=== PATIENT | male | born 1950 | race Caucasian/White ===

== ENCOUNTER 2019-06-03 11:07 | Inpatient (IN) | payer MEDICARE ==
[~2019-06-03] VITALS: Ht 177.8 cm; Wt 53.3 kg
--- OUTSIDE RECORDS SUMMARY | 2019-06-03 11:09 | XMS REPORT ---
Author Author [facility] Address Unknown Phone Unavailable Care Team Providers Care Director Outpatient Services Name Role Phone Unavailable Unavailable Problems This patient has no known problems. Allergies, Adverse Reactions, Alerts This patient has no known allergies or adverse reactions. Medications This patient has no known medications. Encounters Start Date/Time End Date/Time Encounter Type Admission Type Attending Clinicians Care Facility Care Department Encounter ID 2019-05-02 01:48:00 2019-05-01 18:14:00 Inpatient E [id number]
[2019-06-03 11:56] LABS: BASOPHILS % 0.3 % (0.0-1.0); EOSINOPHILS % 0.1 % (0.0-6.0); LYMPHOCYTES # (AUTO) 2.2 (1.0-3.2); LYMPHOCYTES % 17.6 % (18.0-39.1); MEAN CORPUSCULAR HEMOGLOBIN 31.7 pg (28-32); MEAN CORPUSCULAR HGB CONC 31.1 g/dL (31-35); MEAN CORPUSCULAR VOLUME 102.1 fL (81-99); MONOCYTES # (AUTO) 1.4 (0.2-0.8); MONOCYTES % 11.8 % (4.4-11.3); NEUTROPHILS # (AUTO) 7.7 (2.1-6.9); NEUTROPHILS % 63.2 % (38.7-80.0); PLATELET COUNT 234 x10e3/uL (140-360); RED BLOOD COUNT 1.45 x10e6/uL (4.3-5.7); RED CELL DISTRIBUTION WIDTH 16.2 % (11.7-14.4)
[2019-06-03] MEDS ORDERED: PANTOPRAZOLE 40 MG 10ML VIAL IV ONE (12:00)
[2019-06-03 12:07] LABS: INR 1.06; PROTHROMBIN TIME 14.3 seconds (11.9-14.5)
[2019-06-03 12:14] LABS: HEMATOCRIT 14.8 % (38.2-49.6); HEMOGLOBIN 4.6 g/dL (14.0-18.0)
[2019-06-03 12:17] LABS: ALBUMIN 2.9 g/dL (3.5-5.0); ALBUMIN/GLOBULIN RATIO 1.3 (0.8-2.0); ANION GAP 12.7 mmol/L (8-16); CALCIUM 7.6 mg/dL (8.4-10.2); CREATININE, SERUM 3.14 mg/dL (0.72-1.25); POTASSIUM 4.7 mmol/L (3.5-5.1)
[2019-06-03] MEDS ORDERED: SODIUM CHLORIDE 0.9% 250ML 250 ML IV ONE ×2 (12:30→12:45)
[2019-06-03] MEDS ORDERED: OCTREOTIDE ACETATE 0.1 MG/ML 100MCG AMP IV ONE (12:45)
[2019-06-03] MEDS ORDERED: OCTREOTIDE ACETATE 500 MCG in SODIUM CHLORIDE 0.9% 250ML 250 ML IV ONE (12:45)
[2019-06-03] MEDS ORDERED: DEXTROSE 50% SYRINGE 50 ML IV PRN (13:00)
[2019-06-03] MEDS ORDERED: SODIUM CHLORIDE FLUSH 10 ML SYR INJ PRN (13:00)
[2019-06-03] MEDS ORDERED: LISINOPRIL5 MG PO (13:13)
[2019-06-03] MEDS ORDERED: AMLODIPINE BESY10 MG PO (13:13)
[2019-06-03] MEDS ORDERED: DOXAZOSIN MESYLA4 MG PO (13:13)
[2019-06-03] MEDS ORDERED: GLIMEPIRIDE2 MG PO (13:13)
[2019-06-03] MEDS ORDERED: PANTOPRAZOLE SO40 MG PO (13:13)
[2019-06-03] MEDS: PANTOPRAZOL 40MG/SOD CHL 0.9% 50 ML IV SCH ×3 (13:49→23:45)
[2019-06-03] MEDS: OCTREOTIDE ACETATE 500 MCG in SODIUM CHLORIDE 0.9% 250ML 250 ML IV SCH ×2 (13:54→23:45)
[2019-06-03 14:04] LABS: BILIRUBIN,URINE NEGATIVE (NEGATIVE); CLARITY,URINE CLOUDY (CLEAR); COLOR,URINE YELLOW (YELLOW); KETONES,URINE NEGATIVE (NEGATIVE); LEUKOCYTE ESTERASE ,URINE LARGE (NEGATIVE); NITRITE,URINE POSITIVE (NEGATIVE); PROTEIN,URINE DIPSTICK TRACE (NEGATIVE); URINE UROBILINOGEN 0.2 mg/dL (0.2 - 1)
[2019-06-03] MEDS: INSULIN REGULAR, HUMAN 100 UNIT/1 ML 3ML VIAL SQ SCH ×3 (14:09→21:00)
[2019-06-03 14:17] LABS: BACTERIA,URINE MANY /HPF; EPITHELIAL CELLS,URINE FEW /LPF; RBC,URINE 0-5 /HPF (0-5)
[2019-06-03 15:24] VITALS: BP 152/83
[2019-06-03 15:59] VITALS: BP 152/83
[2019-06-03 16:01] VITALS: BP 152/83
[2019-06-03] MEDS ORDERED: SODIUM CHLORIDE 0.9% 250ML 250 ML ONE (16:25)
[2019-06-03 19:02] VITALS: BP 152/83
[2019-06-03] MEDS ORDERED: SODIUM CHLORIDE 0.9% 250ML 750 ML ONE (19:29)
[2019-06-03 20:00] VITALS: BP 154/82
[2019-06-03 20:38] LABS: LYMPHOCYTES % (MANUAL) 14 % (19-48); METAMYELOCYTES % (MANUAL) 2 % (0-0); MONOCYTES % (MANUAL) 10 % (3.4-9.0); MYELOCYTES % (MANUAL) 2 % (0-0); NEUTROPHILS % (MANUAL) 71 % (40-74)
[2019-06-03 20:39] LABS: ANISOCYTOSIS MODERATE; HYPOCHROMASIA MODERATE; RBC MORPHOLOGY COMMENT NORMAL
[2019-06-03 20:40] LABS: PLATELET ESTIMATE ADEQUATE; PLATELET MORPHOLOGY COMMENT NORMAL
[2019-06-04] VITALS (8 sets, daily range): BP systolic 141–223; BP diastolic 87–119
[2019-06-04] MEDS: PANTOPRAZOL 40MG/SOD CHL 0.9% 50 ML IV SCH ×5 (04:00→20:23)
--- NOTE | 2019-06-04 06:20 | NUR ---
Spoke with Dr. Berrios and made aware of change in admitting status. Informed of blood transfusions new orders to hold last two units of blood and draw CBC. Also changed GI consult to Dr. Liu. Left message with Dr. Liu answering service for consult.
[2019-06-04] MEDS: INSULIN REGULAR, HUMAN 100 UNIT/1 ML 3ML VIAL SQ SCH ×4 (07:30→20:14)
[2019-06-04] MEDS: NICOTINE 21 MG/EA PATCH TOP SCH (08:01)
[2019-06-04 08:30] LABS: BASOPHILS # (AUTO) 0.2 (0.0-0.1); BASOPHILS % 1.1 % (0.0-1.0); EOSINOPHILS % 0.1 % (0.0-6.0); HEMATOCRIT 27.9 % (38.2-49.6); HEMOGLOBIN 9.1 g/dL (14.0-18.0); LYMPHOCYTES % 14.4 % (18.0-39.1); MEAN CORPUSCULAR HEMOGLOBIN 30.4 pg (28-32); MEAN CORPUSCULAR HGB CONC 32.6 g/dL (31-35); MEAN CORPUSCULAR VOLUME 93.3 fL (81-99); MONOCYTES # (AUTO) 1.6 (0.2-0.8); MONOCYTES % 11.9 % (4.4-11.3); NEUTROPHILS % 66.1 % (38.7-80.0); PLATELET COUNT 189 x10e3/uL (140-360); RED BLOOD COUNT 2.99 x10e6/uL (4.3-5.7); RED CELL DISTRIBUTION WIDTH 17.3 % (11.7-14.4)
[2019-06-04 08:40] LABS: INR 1.05; PROTHROMBIN TIME 14.2 seconds (11.9-14.5)
[2019-06-04 08:41] LABS: PARTIAL THROMBOPLASTIN TIME 31.9 seconds (23.8-35.5)
[2019-06-04 08:48] LABS: ALBUMIN 2.9 g/dL (3.5-5.0); ALBUMIN/GLOBULIN RATIO 1.2 (0.8-2.0); ANION GAP 12.4 mmol/L (8-16); CALCIUM 7.9 mg/dL (8.4-10.2); CREATININE, SERUM 3.3 mg/dL (0.72-1.25); POTASSIUM 5.4 mmol/L (3.5-5.1)
[2019-06-04] MEDS: HYDRALAZINE HCL 20 MG/ML VIAL IV PRN ×2 (08:58→17:00)
[2019-06-04] MEDS: AMLODIPINE BESYLATE 10 MG TAB PO SCH (09:00)
[2019-06-04] MEDS ORDERED: FUROSEMIDE INJ 10 MG/ML 4 ML VIAL IV ONE (11:00)
[2019-06-04] MEDS: CEFTRIAXONE SOD 1 GM/NS 50 ML 50 ML IV SCH (11:02)
[2019-06-04] MEDS ORDERED: HEPARIN SOD (PORCINE) 1000 UNIT/ML SDV ONE (13:40)
--- NOTE | 2019-06-04 14:18 | History and Physical ---
PRIMARY CARE PHYSICIAN: Dr. Wilfred Garcia. CONSULTANTS: . CHIEF COMPLAINT: Symptomatic anemia. HISTORY OF PRESENT ILLNESS: A 69-year-old male with GI bleed for the past month or so. The patient was supposed to have a colonoscopy later this month and apparently the patient was having increasing shortness of breath with exertion. He came to the hospital for evaluation. The patient was noted to have melena. He also had significant drop in hemoglobin and hematocrit. His hemoglobin and hematocrit are 4.6 and 14.8 respectively. He does have chronic kidney disease. BUN and creatinine noted to be 41 and 3.1. The patient is otherwise stable. He had no chest pain. He does have stool for occult blood positive. The patient has a gastric ulcer in the past approximately six years ago where he had an EGD. No history of colonoscopy. PAST MEDICAL HISTORY: Hypertension, smoker with COPD. PAST SURGICAL HISTORY: EGD. SOCIAL HISTORY: The patient is a pack per day for many years. He denies alcohol use. No recreational drugs. ALLERGIES: BASAGLAR. HOME MEDICATIONS: List reviewed. REVIEW OF SYSTEMS: Shortness of breath on exertion. No chest pain. No abdominal pain. PHYSICAL EXAMINATION: VITAL SIGNS: Temperature is 98.7, blood pressure 173/99, pulse rate 74, and respirations 18. GENERAL: The patient is not in acute distress. HEENT: Normocephalic, atraumatic. NECK: Supple grossly. PULMONARY: Clear. CARDIOVASCULAR: Regular rate and rhythm. ABDOMEN: Soft. Positive bowel sounds. Nontender, no distention. EXTREMITIES: No cyanosis or edema. NEUROLOGIC: No gross focal deficit. LABORATORY DATA: Sodium is 131, potassium 4.7, chloride 109, bicarb 14, BUN 41, creatinine 3.1, glucose 193. WBC 12.2, hemoglobin 4.6, hematocrit 14.8, platelets is 234. INR is 1.01. AST is 21, ALT 15, total bilirubin 0.2, alkaline phos is 56. IMPRESSION: Acute on chronic blood loss anemia with symptomatic anemia. PLAN: Blood transfusion. The patient already had 4 units of blood. Repeat CBC, BMP. The patient will need endoscopy. We will resume some home medication when the patient is able to take oral medication. We will start the patient on Rocephin 1 g daily for possible prostatitis, urinary tract infection. We will continue to monitor the patient closely and pending on his endoscopy we will follow up with the results. MD CAREY Dillard/TRINIDAD /[id number]
[2019-06-04] MEDS: OCTREOTIDE ACETATE 500 MCG in SODIUM CHLORIDE 0.9% 250ML 250 ML IV SCH (15:48)
[2019-06-04] MEDS ORDERED: PEG (High)/E-LYTE SOLN 4,000 ML BTL PO ONE (18:00)
[2019-06-04] MEDS ORDERED: PROPOFOL IV EMULSION 10 MG/ML 20 ML VIAL ONE (18:08)
--- NOTE | 2019-06-04 19:16 | NUR ---
Received bedside report from day nurse. Patient resting in bed, alert and oriented, no s/s of distress or c/o pain at this time. All safety measures in place. Family at bedside. Will continue to monitor.
--- NOTE | 2019-06-04 19:40 | NUR ---
Patient currently off unit for CT.
--- NOTE | 2019-06-04 20:03 | NUR ---
Patient back from CT. In stable condition, no s/s of distress at this time. All safety measures in place. Family at bedside. Will continue to monitor.
[2019-06-04] MEDS: DOXAZOSIN MESYLATE 2 MG TAB PO SCH (20:23)
--- NOTE | 2019-06-04 21:04 | Diagnostic Imaging Report ---
EXAM: CT Chest, Abdomen and Pelvis WITHOUT contrast INDICATION: Anemia, GI bleeding, shortness of breath COMPARISON: None. TECHNIQUE: Chest, abdomen and pelvis were scanned utilizing a multidetector helical scanner from the lung apex to the pubic symphysis without administration of IV contrast. Absence of intravenous contrast decreases sensitivity for detection of focal lesions and vascular pathology. Coronal and sagittal reformations were obtained. Routine protocol was performed. Dose modulation, iterative reconstruction, and/or weight based adjustment of the mA/kV was utilized to reduce the radiation dose to as low as reasonably achievable. IV CONTRAST: None. ORAL CONTRAST: None RADIATION DOSE: Total DLP: 312.95 mGy*cm Estimated effective dose: (DLP x 0.015 x size factor) mSv COMPLICATIONS: None FINDINGS: LINES and TUBES: None. LUNGS AND AIRWAYS: No focal airspace opacity. There is a nonspecific 3 mm nodule along the major fissure on the right (series 4, image 67), likely subpleural node. There is mild paraseptal emphysema with small pneumatoceles in the lower lobes. Mild bronchiectasis in the lower lobes. PLEURA: The pleural spaces are clear. HEART AND MEDIASTINUM: There is a 1.0 cm nodule in the right thyroid lobe. No mediastinal, hilar or axillary lymphadenopathy. The heart is normal in size.. There is no pericardial effusion. The thoracic aorta is atherosclerotic with scattered calcified plaque. Ascending aorta measures 3.5 cm, normal. Main pulmonary artery measures 2.7 cm, normal. HEPATOBILIARY: There is a 0.7 cm indeterminate hypodensity in the dome of the liver, too small to fully characterize. No other hepatic masses identified. No biliary ductal dilation. GALLBLADDER: No radio-opaque stones. There is mildly dense gallbladder content which may represent sludge. No wall thickening. SPLEEN: No splenomegaly. PANCREAS: There are diffuse coarse calcifications throughout the pancreatic head, body and tail likely the result of chronic pancreatitis. There are no surrounding fluid collections or areas of inflammatory stranding. ADRENALS: No adrenal nodules KIDNEYS/URETERS: Left kidney is atrophic measuring approximately 6.1 cm in length. There is mild fullness of the right renal collecting system and ureter. The distal right ureter is also dilated with dilatation at the ureterovesical junction on the right. No cystic or solid mass lesions. No stones. GI TRACT: There is moderate retained stool throughout the colon. There is dilatation of the small bowel containing fluid, disproportionate to the colonic caliber. Appendix is normal. PELVIC ORGANS/BLADDER: Mild wall thickening of the urinary bladder which may be related to outlet obstruction. The prostate is enlarged and invaginates the bladder base. Dilatation of the right UVJ and distal ureter again noted. No discrete abnormal mass or fluid collection in the pelvis. LYMPH NODES: No dominant lymph node mass is seen in the abdomen, retroperitoneum or pelvis although visualization is somewhat compromised by lack of contrast. VESSELS: The abdominal aorta is atherosclerotic with extensive calcified plaque in the aorta and iliac arteries. No aortic aneurysm. There is mild aneurysmal dilatation of the common iliac arteries. Measuring 1.6 cm on the right and 1.4 cm on the left. PERITONEUM / RETROPERITONEUM: No pneumoperitoneum or ascites. BONES: No acute or suspicious bony lesions. There are patchy areas of sclerosis in the femoral heads, nonspecific but may be seen with aseptic necrosis. There are degenerative changes in the spine. SOFT TISSUES: Superficial surrounding soft tissue unremarkable. IMPRESSION: 1. Dilated fluid-filled small bowel at a proportion to the caliber of the colon suggesting either distal small bowel obstruction or diffuse ileus. There is moderately large volume of stool and air in the colon. 2. Atrophic left kidney. Mild dilatation of the right renal collecting system and ureter with dilatation of the ureterovesical junction. This may represent reflux. 3. Enlarged prostate with mild bladder wall thickening suggesting bladder outlet obstruction. 4. Centrilobular emphysema and mild bronchiectasis. 5. Diffuse coarse calcifications in the pancreas suggesting chronic pancreatitis. 6. Nonspecific 3 mm nodule in the right lung for which no specific follow-up is required based on Fleischner Society criteria. 7. Right thyroid nodule which may be further evaluated by thyroid ultrasound. Signed by: Dr. Ole Tejeda M.D. on 06/04/2019 9:01 PM
--- NOTE | 2019-06-04 23:40 | Consultation ---
DATE OF CONSULTATION: HISTORY OF PRESENT ILLNESS: Mr. Clements is a gentleman, 69-year-old, who came to my office with abdominal discomfort. He said he was evaluated early this month, at [facility], found to have some acute renal failure, urosepsis, anemia of unclear etiology. His discomfort in the epigastric region for the past several weeks. No triggering factor. Cannot categorize the discomfort, moderate in severity, progressive in intensity, does not radiate. No aggravating factor. No relieving factor, associated with 20 pounds weight loss. Pertinent surgical history, the patient in the past had colonoscopy, 2016, showed internal hemorrhoid, eight polyp removed, recommended to be repeated in 3 years. He had an upper endoscopy done several years ago by another roll cutting operator. The patient is scheduled for upper and lower endoscopy as an outpatient and we ran blood test on him as an outpatient, was called when his hemoglobin came back to be around 4. Brought to the emergency room and got admitted to the hospital. Received 4 units of blood transfusion. Talking to him, he is still maintaining the same complaint of mild abdominal discomfort. Some nausea, occasionally he see dark colored blood in the stool and of course the weight loss. ALLERGIES: CIPRO. PAST MEDICAL HISTORY: History of peptic ulcer disease. History of thyroid disease, diabetes, and hypertension. HOME MEDICATIONS: Glimepiride, lisinopril, amlodipine, and doxazosin. He was on Plavix, but was stopped by his primary care recently. PAST SURGICAL HISTORY: No past surgeries. FAMILY HISTORY: Unremarkable. SOCIAL HISTORY: He is , has 4 kids. He does not drink and he smoke about 10 cigarettes a day. PHYSICAL EXAMINATION: GENERAL: Awake, alert, oriented, hemodynamically stable. Afebrile. NECK: Supple. No node or mass. LUNGS: Clear to auscultation. HEART: Regularly irregular rhythm. No added sound. ABDOMEN: Soft, not distended. No acute sign. No masses. No organomegaly. EXTREMITIES: No edema. CENTRAL NERVOUS SYSTEM: Motor function grossly intact. LABORATORY DATA: The patient has received 4 units blood transfusion. His hemoglobin and hematocrit today are 9 and 25, up from 4 and 4 and 14. PT and PTT are normal, platelet 189, BUN and creatinine of 30 and 3. Sodium 135, potassium 5.4. His urinalysis showed positive nitrite and positive wbc's. IMPRESSION: Weight loss, anemia, acute. We will plan for upper endoscopy. Keep him on acid pump inhibitor. Continue to observing his hemoglobin and hematocrit. If his upper endoscopy did not show any signs of active bleed, we will proceed with a Colonoscopy while in the hospital and also will treat his UTI. Sheyla Liu MD RD/MODVicente /[id number]
[2019-06-05] VITALS (8 sets, daily range): BP systolic 135–172; BP diastolic 69–98
[2019-06-05] MEDS: PANTOPRAZOL 40MG/SOD CHL 0.9% 50 ML IV SCH ×5 (01:21→20:53)
[2019-06-05] MEDS: OCTREOTIDE ACETATE 500 MCG in SODIUM CHLORIDE 0.9% 250ML 250 ML IV SCH ×2 (02:05→12:00)
[2019-06-05 05:35] LABS: BASOPHILS # (AUTO) 0.2 (0.0-0.1); BASOPHILS % 1.4 % (0.0-1.0); EOSINOPHILS % 0.1 % (0.0-6.0); HEMATOCRIT 29.6 % (38.2-49.6); HEMOGLOBIN 9.6 g/dL (14.0-18.0); LYMPHOCYTES # (AUTO) 1.7 (1.0-3.2); LYMPHOCYTES % 13.7 % (18.0-39.1); MEAN CORPUSCULAR HEMOGLOBIN 30.1 pg (28-32); MEAN CORPUSCULAR HGB CONC 32.4 g/dL (31-35); MEAN CORPUSCULAR VOLUME 92.8 fL (81-99); MONOCYTES # (AUTO) 1.6 (0.2-0.8); MONOCYTES % 12.9 % (4.4-11.3); NEUTROPHILS % 66.7 % (38.7-80.0); PLATELET COUNT 184 x10e3/uL (140-360); RED BLOOD COUNT 3.19 x10e6/uL (4.3-5.7); RED CELL DISTRIBUTION WIDTH 17.3 % (11.7-14.4)
[2019-06-05] MEDS: HYDRALAZINE HCL 20 MG/ML VIAL IV PRN (05:40)
--- NOTE | 2019-06-05 05:41 | NUR ---
Per patient request, provided written educational materials about smoking cessation.
[2019-06-05 05:52] LABS: ANION GAP 18.3 mmol/L (8-16); CALCIUM 8.1 mg/dL (8.4-10.2); CREATININE, SERUM 3.46 mg/dL (0.72-1.25); POTASSIUM 5.3 mmol/L (3.5-5.1)
[2019-06-05] MEDS: INSULIN REGULAR, HUMAN 100 UNIT/1 ML 3ML VIAL SQ SCH ×4 (07:30→21:20)
--- NOTE | 2019-06-05 08:23 | NUR ---
Report given to charge nurse. Patient resting in bed, no s/s of distress or c/o pain at this time. All safety measures in place.
--- NOTE | 2019-06-05 09:00 | NUR ---
The pt. is maintained n po for colonoscopy and also will have a bleeding scan today. The pt. was advised to put on gown and remove all other clothing as surgery called to report that they are coming for the pt now. The morning med pass will be delayed until all testing is completed.
[2019-06-05] MEDS: CEFTRIAXONE SOD 1 GM/NS 50 ML 50 ML IV SCH (11:30)
[2019-06-05] MEDS: AMLODIPINE BESYLATE 10 MG TAB PO SCH (12:30)
[2019-06-05] MEDS: NICOTINE 21 MG/EA PATCH TOP SCH (12:35)
--- NOTE | 2019-06-05 13:55 | NUR ---
Visit made by the Spiritual Care Department Samantha Soria. PV provided pastoral presence, hospitality, and supportive listening. Pastoral Visitor informed pt/family of the scope of [facility] [employer] and availability. RUFUS Daslain Spiritual Care Department O: [phone]
--- NOTE | 2019-06-05 15:30 | NUR ---
The pt. was returned from completion of colonoscopy and bleed scan. He is awake alert and oriented. V/s are stable and iv fluids reconnected
[2019-06-05] MEDS ORDERED: GLUCAGON FOR INJ 1 MG VIAL ONE (18:10)
[2019-06-05] MEDS ORDERED: PROPOFOL IV EMULSION 10 MG/ML 50 ML VIAL ONE (18:10)
--- NOTE | 2019-06-05 18:25 | Diagnostic Imaging Report ---
Tagged-RBC GI Bleed Study Clinical information: 69-year-old male with melena and anemia. Hgb 4.6 mg/dL on 06/04/2019. History of gastric ulcer 6 years ago. Discussion: The patient's own red blood cells were labeled with 22.5 mCi of technetium-99m pertechnetate using the in vitro method (UltraTag). Dynamic images of the abdomen were obtained through 60 minutes. Distribution of tracer activity appears physiologic throughout the abdomen. No abnormal accumulation of tracer is seen within the gastrointestinal lumen. Impression: No scan evidence of active gastrointestinal bleeding at this time. Signed by: Dr. Deb Esteves M.D. on 06/05/2019 6:22 PM
--- NOTE | 2019-06-05 19:08 | NUR ---
report to the oncoming nurse and bedside rounds completed
[2019-06-05] MEDS ORDERED: MIDAZOLAM HCL 2 MG/2 ML VIAL ONE (19:10)
--- NOTE | 2019-06-05 19:11 | NUR ---
Received bedside report from day nurse. Patient sitting up on side of bed, no s/s of distress or c/o pain at this time. All safety measures in place. Will continue to monitor.
[2019-06-05] MEDS: DOXAZOSIN MESYLATE 2 MG TAB PO SCH (21:20)
[2019-06-06] VITALS (7 sets, daily range): BP systolic 105–189; BP diastolic 60–97
[2019-06-06] MEDS: OCTREOTIDE ACETATE 500 MCG in SODIUM CHLORIDE 0.9% 250ML 250 ML IV SCH ×2 (00:21→11:11)
[2019-06-06] MEDS: PANTOPRAZOL 40MG/SOD CHL 0.9% 50 ML IV SCH ×3 (02:30→11:11)
--- NOTE | 2019-06-06 06:05 | NUR ---
Patient appeared obtunded with slurred speech and slow movements. Performed stroke assessment. No significant findings noted other than slurred speech. Patient alert and oriented, obeying commands. No s/s of distress or c/o pain. Performed fingerstick glucose check, results were 71. Provided 8 oz of orange juice. Speech now back to baseline. No other abnormal symptoms noted. Will continue to monitor patient.
--- NOTE | 2019-06-06 07:00 | NUR ---
BEDSIDE SHIFT REPORT RECEIVED, PT IN STABLE CONDITION DENIES PAIN AT THIS TIME, 20G R HAND NO SS OF INFILTRATION NOTED, NO OTHER CO VOCIED CALL LIGHT IN REACH WILL CONTINUE TO MONITOR
--- NOTE | 2019-06-06 07:27 | NUR ---
Bedside report given to night nurse. Patient resting in bed, alert and oriented, no s/s of distress or c/o pain at this time. All safety measures in place.
[2019-06-06] MEDS: AMLODIPINE BESYLATE 10 MG TAB PO SCH (08:22)
[2019-06-06] MEDS: NICOTINE 21 MG/EA PATCH TOP SCH (08:22)
[2019-06-06] MEDS: INSULIN REGULAR, HUMAN 100 UNIT/1 ML 3ML VIAL SQ SCH ×4 (08:23→20:08)
[2019-06-06] MEDS: CEFTRIAXONE SOD 1 GM/NS 50 ML 50 ML IV SCH (11:00)
[2019-06-06 13:44] LABS: BASOPHILS # (AUTO) 0.1 (0.0-0.1); BASOPHILS % 0.9 % (0.0-1.0); EOSINOPHILS % 0.1 % (0.0-6.0); HEMOGLOBIN 9.2 g/dL (14.0-18.0); LYMPHOCYTES # (AUTO) 1.2 (1.0-3.2); LYMPHOCYTES % 11.2 % (18.0-39.1); MEAN CORPUSCULAR HGB CONC 31.7 g/dL (31-35); MEAN CORPUSCULAR VOLUME 94.5 fL (81-99); MONOCYTES # (AUTO) 1.1 (0.2-0.8); MONOCYTES % 10.3 % (4.4-11.3); NEUTROPHILS # (AUTO) 7.6 (2.1-6.9); NEUTROPHILS % 72.2 % (38.7-80.0); PLATELET COUNT 191 x10e3/uL (140-360); RED BLOOD COUNT 3.07 x10e6/uL (4.3-5.7); RED CELL DISTRIBUTION WIDTH 17.1 % (11.7-14.4)
[2019-06-06 14:12] LABS: ANION GAP 17.3 mmol/L (8-16); CALCIUM 7.8 mg/dL (8.4-10.2); CREATININE, SERUM 3.44 mg/dL (0.72-1.25); POTASSIUM 4.3 mmol/L (3.5-5.1)
[2019-06-06 15:52] LABS: LYMPHOCYTES % (MANUAL) 6 % (19-48); MONOCYTES % (MANUAL) 13 % (3.4-9.0); NEUTROPHILS % (MANUAL) 79 % (40-74)
[2019-06-06 15:53] LABS: PLATELET ESTIMATE ADEQUATE; PLATELET MORPHOLOGY COMMENT NORMAL; RBC MORPHOLOGY COMMENT NORMAL
[2019-06-06 15:54] LABS: ANISOCYTOSIS SLIGHT
--- NOTE | 2019-06-06 17:00 | NUR ---
PT SITTING IN RECLINER LEANING SIDEWAYS, PT SEEMS OBTUND AND SPEECH SLURRED, BLOOD SUGAR CHECK 65, PT GIVEN JUICE WITH SUGAR, AND EATING DINNER. WILL RECHECK BLOOD SUGAR IN 30 MINS
--- NOTE | 2019-06-06 17:30 | NUR ---
BLOOD SUGAR RECHECKED WITH RESULTS OF 138, NO DISTRESS NOTED, WILL CONTINUE TO MONITOR
--- NOTE | 2019-06-06 19:16 | NUR ---
Received bedside report from day nurse. Patient sitting on couch, alert and oriented, no s/s of distress or c/o pain at this time. All safety measures in place. Will continue to monitor.
[2019-06-06] MEDS: DOXAZOSIN MESYLATE 2 MG TAB PO SCH (20:17)
[2019-06-07] VITALS: BP 166/89
[2019-06-07 04:00] VITALS: BP 152/77
--- NOTE | 2019-06-07 07:16 | NUR ---
Gave bedside report to oncoming nurse. Patient up in bed, no s/s of distress or c/o pain at this time. All safety measures in place.
[2019-06-07] MEDS: INSULIN REGULAR, HUMAN 100 UNIT/1 ML 3ML VIAL SQ SCH ×2 (07:30→11:30)
[2019-06-07] MEDS: NICOTINE 21 MG/EA PATCH TOP SCH (07:39)
[2019-06-07] MEDS: AMLODIPINE BESYLATE 10 MG TAB PO SCH (07:57)
[2019-06-07 08:00] VITALS: BP 124/81
[2019-06-07 08:05] VITALS: BP 124/81
--- NOTE | 2019-06-07 08:20 | NUR ---
HANDOFF REPORT TO ONCOMING NURSE, PATIENT SITTING UP NO S/S OF DISTRESS, ALERT AND ORIENTED X3.
[2019-06-07] MEDS: CEFTRIAXONE SOD 1 GM/NS 50 ML 50 ML IV SCH (11:30)
[2019-06-07 11:47] VITALS: BP 130/62
== END 2019-06-07 14:51 | disposition home or self-care (01) | DRG 378 ==
LOC: ER 11:07 → ERHOLD 13:41 → MED/SURG 15:20
PROVIDERS: ADMIT Internal Medicine; ATTEND Internal Medicine
PROC: 30233N1 Transfusion of Nonautologous Red Blood Cells into Peripheral Vein, Percutaneous Approach (ICD-10-PCS; 2019-06-03)
PROC: 0DB98ZX Excision of Duodenum, Via Natural or Artificial Opening Endoscopic, Diagnostic (ICD-10-PCS; 2019-06-04)
PROC: 0DB68ZX Excision of Stomach, Via Natural or Artificial Opening Endoscopic, Diagnostic (ICD-10-PCS; 2019-06-04)
PROC: 0DBQ8ZX Excision of Anus, Via Natural or Artificial Opening Endoscopic, Diagnostic (ICD-10-PCS; principal; 2019-06-05 12:00)
PROC: 0DBK8ZX Excision of Ascending Colon, Via Natural or Artificial Opening Endoscopic, Diagnostic (ICD-10-PCS; 2019-06-05 12:00)
DX: K92.1 Melena (principal); D62 Acute posthemorrhagic anemia; N39.0 Urinary tract infection, site not specified; R73.9 Hyperglycemia, unspecified; Z88.1 Allergy status to other antibiotic agents; F17.210 Nicotine dependence, cigarettes, uncomplicated; J44.9 Chronic obstructive pulmonary disease, unspecified; R63.4 Abnormal weight loss; D12.2 Benign neoplasm of ascending colon; K64.8 Other hemorrhoids; K62.89 Other specified diseases of anus and rectum; K57.30 Diverticulosis of large intestine without perforation or abscess without bleeding; K21.0 Gastro-esophageal reflux disease with esophagitis; K44.9 Diaphragmatic hernia without obstruction or gangrene; K29.60 Other gastritis without bleeding; N18.3 Chronic kidney disease, stage 3 (moderate); I12.9 Hypertensive chronic kidney disease with stage 1 through stage 4 chronic kidney disease, or unspecified chronic kidney disease
CPT/HCPCS: 36415; 43239; 45378; 45384; 71250; 74176; 78278; 80048; 80053; 81001; 82150; 82270; 82607; 82948; 83036; 83690; 84443; 85025; 85610; 85730; 86850; 86900; 86920; 87086; 87186; 88305; 88312; 93005; 96372; 99284; A9512; J0360; J0696; J1610; J1644; J1817; J1940; J2250; J2353; J2354; J7050; P9016